=== PATIENT | female | born 1970 ===

== ENCOUNTER 2018-05-19 14:34 | Emergency (ER) | payer BC, OTHER ==
[2018-05-19 14:49] VITALS: BP 120/62
[2018-05-19] MEDS ORDERED: Tetan/Diph/Pertus SYR(Tdap)* 0.5 ML SYR(BOOSTRIX) use SYR IM ONE (14:56)
--- NOTE | 2018-05-19 15:08 | UC ---
Bite Injury/Animal HPI - HPI Summary HPI Summary: cat bite to distal right thumb about 2 hours prior to arrival washed immediately minimal bleeding full ROM- - History of Current Complaint Chief Complaint: UCUpperExtremity Stated Complaint: CAT BITE Time Seen by Provider: 05/19/18 14:40 Hx Obtained From: Patient Hx Last Menstrual Period: 05/19/18 ?: No Pain Intensity: 2 Pain Scale Used: 0-10 Numeric Onset/Duration: Gradual Onset, Still Present Type of Bite: Pet Has Animal Been Immunized?: Yes Character: Puncture Aggravating Factor(s): Nothing Alleviating Factor(s): Nothing Associated Signs And Symptoms: Positive: Negative Hx of Bite: Provoked by: - vet examination Animal Available for Observation: Yes Animal Control Notified: Yes - Allergies/Home Medications Allergies/Adverse Reactions: Allergies Allergy/AdvReac Type Severity Reaction Status Date / Time Penicillins Allergy Unknown Verified 05/19/18 14:49 Reaction Details PMH/Surg Hx/FS Hx/Imm Hx Previously Healthy: Yes - Surgical History Surgical History: None - Family History Known Family History: Positive: None - Social History Occupation: Employed Full-time Lives: With Family Alcohol Use: Daily Substance Use Type: Marijuana Smoking Status (MU): Never Smoked Tobacco Review of Systems Constitutional: Negative Skin: Negative, Other - puture wound right proximal thumb Eyes: Negative ENT: Negative Respiratory: Negative Cardiovascular: Negative Gastrointestinal: Negative Genitourinary: Negative Motor: Negative Neurovascular: Negative Musculoskeletal: Negative Neurological: Negative Psychological: Negative Is Patient Immunocompromised?: No All Other Systems Reviewed And Are Negative: Yes Physical Exam Triage Information Reviewed: Yes Appearance: Well-Appearing, No Pain Distress, Well-Nourished Vital Signs: Initial Vital Signs Temp 98.2 F 05/19/18 14:42 Pulse 79 05/19/18 14:42 Resp 16 05/19/18 14:42 BP 120/62 05/19/18 14:42 Pulse Ox 100 05/19/18 14:42 Vital Signs Reviewed: Yes Eye Exam: Normal Eyes: Positive: Conjunctiva Clear ENT Exam: Normal ENT: Positive: Normal ENT inspection, Hearing grossly normal. Negative: Trismus , Muffled voice, Hoarse voice Dental Exam: Normal Neck exam: Normal Neck: Positive: Supple, Nontender Respiratory Exam: Normal Respiratory: Positive: Chest non-tender, No respiratory distress, No accessory muscle use Cardiovascular Exam: Normal Cardiovascular: Positive: RRR, Pulses Normal, Brisk Capillary Refill Musculoskeletal Exam: Normal Musculoskeletal: Positive: Strength Intact, ROM Intact, No Edema Neurological Exam: Normal Neurological: Positive: Alert, Muscle Tone Normal Psychological Exam: Normal Skin Exam: Other Skin: Positive: Other - puncture wounds as noted in chief complaint Bite Injury Course/Dx - Course Course Of Treatment: patient perfers not to take augmentin or Doxycycline--- will update tetanus, use Bactrim and Clindamycin (per up to date) follow with hand surgeon (referral made) warm soaks, rest - Differential Dx/Diagnosis Provider Diagnoses: cat bite to right proximal thumb Discharge - Sign-Out/Discharge Documenting (check all that apply): Patient Departure All imaging exams completed and their final reports reviewed: No Studies - Discharge Plan Condition: Stable Disposition: HOME Prescriptions: Clindamycin Cap(NF) [Clindamycin Cap 300 mg Cap(NF)] 300 mg PO TID 10 Days #30 cap Sulfamethox/Trimethoprim DS* [Bactrim DS 800/160 TAB*] 1 tab PO BID #20 tab Patient Education Materials: Diphtheria/Acellular Pertussis/Tetanus Booster Vaccine (By injection), Animal Bite (ED), Warm Compress or Soak (ED) Referrals: Ronda Escobar MD [Medical Doctor] - 5 Days - Billing Disposition and Condition Condition: STABLE Disposition: Home
== END 2018-05-19 15:24 | disposition home or self-care (01) ==
LOC: UCEAST 14:34
DX: S61.051A Open bite of right thumb without damage to nail, initial encounter (principal); Z88.0 Allergy status to penicillin; W55.01XA Bitten by cat, initial encounter; Y92.9 Unspecified place or not applicable
CPT/HCPCS: 90471; 90715; 99202; G0463